=== PATIENT | male | born 1970 | race American Indian/Alaskan Native ===

== ENCOUNTER 2019-03-05 17:06 | Emergency (ER) | payer OTHER ==
[2019-03-05 18:21] VITALS: BP 121/68
--- NOTE | 2019-03-05 18:22 | Event Note ---
ED Screening Note ED Screening Note: This initial assessment/diagnostic orders/clinical plan/treatment(s) is/are subject to change based on patients health status, clinical progression and re- assessment by fellow clinical providers in the ED. Further treatment and workup at subsequent clinical providers discretion. Patient/guardian urged not to elope from the ED as their condition may be serious if not clinically assessed and managed. Initial orders include: 48yo BM states that he slipped on a stepped on his work truck and cut his L l ower leg earlier today. He states that his pain is a 2.
[2019-03-05] MEDS ORDERED: BOOSTRIX IM ONE (21:28)
--- NOTE | 2019-03-05 22:38 | Emergency Department Report ---
- General Chief Complaint: Extremity Injury, Lower Stated Complaint: LFT LEG GASH/PAIN Time Seen by Provider: 03/05/19 20:27 Source: patient Mode of arrival: Ambulatory Limitations: No Limitations - History of Present Illness Initial Comments: Patient is a 48-year-old male presents emergency room with complaints of lacerations to the left anterior clayton that occurred today around 1 PM. patient states that he tripped over a guardrail and got cut. pt states he has been ambulatory without difficulty. He denies any pain in the leg just pain where the lacerations are. Denies any numbness or weakness. He states initially there was bleeding but it has since improved with dressing. He is unsure of his last tetanus immunization. He denies any past medical history or allergies medications. - Related Data Previous Rx's Medication Instructions Recorded Last Taken Type cephALEXin [Keflex] 500 mg PO QID 7 Days #28 capsule 03/05/19 Unknown Rx Allergies Allergy/AdvReac Type Severity Reaction Status Date / Time No Known Allergies Allergy Verified 03/05/19 18:22 ED Review of Systems ROS: Stated complaint: LFT LEG GASH/PAIN Other details as noted in HPI Comment: All other systems reviewed and negative ED Past Medical Hx - Past Medical History Previous Medical History?: No - Surgical History Past Surgical History?: No - Social History Smoking Status: Current Some Day Smoker Substance Use Type: None - Medications Home Medications: Home Medications Medication Instructions Recorded Confirmed Last Taken Type cephALEXin [Keflex] 500 mg PO QID 7 Days #28 capsule 03/05/19 Unknown Rx ED Physical Exam - General Limitations: No Limitations General appearance: alert, in no apparent distress - Head Head exam: Present: atraumatic, normocephalic - Eye Eye exam: Present: normal appearance - ENT ENT exam: Present: mucous membranes moist - Neurological Exam Neurological exam: Present: alert, oriented X3 - Psychiatric Psychiatric exam: Present: normal affect, normal mood - Skin Skin exam: Present: warm, dry, other (10 cm v-shaped laceration to the left anterior clayton, 3 cm u-shaped laceration to the left anterior clayton, no tendon/muscle involvement, no foreign body, bleeding is well controlled, neurovascularly intact, no deformities, FROM of the left lower extremity) ED Course Vital Signs 03/05/19 03/05/19 18:19 23:55 Temperature 98.4 F Pulse Rate 74 60 Respiratory 18 16 Rate Blood Pressure 121/68 [Right] O2 Sat by Pulse 98 100 Oximetry - Laceration /Wound Repair Left Anterior Leg Wound Location: lower extremity (left anterior clayton) Wound Length (cm): 10 Wound's Depth, Shape: superficial Wound Explored: clean Irrigated w/ Saline (ccs): 100 Betadine Prep?: Yes Anesthesia: 1% Lidocaine Volume Anesthetic (ccs): 10 Wound Debrided: moderate Wound Repaired With: sutures Suture Size/Type: 3:0, proline Number of Sutures: 16 Layer Closure?: No Sterile Dressing Applied?: Yes Progress: Wounds irrigated with saline and thoroughly scrubbed with Betadine, no foreign body or tendon/muscle involvement, 10 cc of 1% lidocaine without epinephrine used as anesthetic, Betadine prepped used, sterile drapes applied, sterile gloves worn, 2 lacerations repaired, 3-0 Prolene used for suture repair, 16 sutures placed, there is a small skin avulsion present to the end of the 10 cm laceration which a repair is not able to be completed, patient tolerated well, no complications, bleeding controlled, sterile dressing applied ED Medical Decision Making - Medical Decision Making Patient is a 48-year-old male presents emergency room with complaints of lacerations to the left anterior clayton that occurred today around 1 PM. patient states that he tripped over a guardrail and got cut. pt states he has been ambulatory without difficulty. He denies any pain in the leg just pain where the lacerations are. Denies any numbness or weakness. He states initially there was bleeding but it has since improved with dressing. He is unsure of his last tetanus immunization. He denies any past medical history or allergies medications. vitals are normal. on exam: 10 cm v-shaped laceration to the left anterior clayton, 3 cm u-shaped laceration to the left anterior clayton, no tendon/muscle involvement, no foreign body, bleeding is well controlled, neurovascularly intact, no deformities, FROM of the left lower extremity. lacerations repaired per procedure note. pt given tetanus immunization. pt given prescription for keflex to prevent infection. advised pt to keep area clean, dry, covered. may wash with soap and water and immediately dry. No hot tub, pool, soaking in water. please take medication as prescribed to completion. follow with a primary care doctor in the next 3-5 days. Sutures will need to be removed in 10 days, may have this completed by your primary care office or return to the emergency room. Return to the emergency room for any new or worsening symptoms or any worsening signs of infection despite antibiotic therapy. Critical care attestation.: If time is entered above; I have spent that time in minutes in the direct care of this critically ill patient, excluding procedure time. ED Disposition Clinical Impression: Lacerations of multiple sites of left leg Qualifiers: Encounter type: initial encounter Qualified Code(s): S81.812A - Laceration without foreign body, left lower leg, initial encounter Disposition: TO HOME OR SELFCARE Is pt being admited?: No Does the pt Need Aspirin: No Condition: Stable Instructions: Suture Care (ED), Laceration (ED) Additional Instructions: Keep area clean, dry, covered. may wash with soap and water and immediately dry. No hot tub, pool, soaking in water. please take medication as prescribed to completion. follow with a primary care doctor in the next 3-5 days. Sutures will need to be removed in 10 days, may have this completed by your primary care office or return to the emergency room. Return to the emergency room for any new or worsening symptoms or any worsening signs of infection despite antibiotic therapy. Prescriptions: cephALEXin [Keflex] 500 mg PO QID 7 Days #28 capsule Referrals: [facility] [Other] - 3-5 Days Forms: Work/School Release Form(ED) Time of Disposition: 22:38 Print Language: TANZANIAN
== END 2019-03-05 23:55 | disposition home or self-care (01) ==
LOC: ED 17:06
DX: S81.812A Laceration without foreign body, left lower leg, initial encounter (principal); F17.200 Nicotine dependence, unspecified, uncomplicated; W45.8XXA Other foreign body or object entering through skin, initial encounter; Y93.89 Activity, other specified; Y92.89 Other specified places as the place of occurrence of the external cause; Y99.8 Other external cause status
CPT/HCPCS: 90471; 90715; 99282